=== PATIENT | female | born 2000 | race Caucasian/White ===

== ENCOUNTER 2021-09-05 15:07 | Emergency (ER) | payer OTHER ==
[2021-09-05 15:12] VITALS: BP 140/90
[2021-09-05 15:25] LABS: RAPID STREP SCREEN Negative (Negative)
[2021-09-05] MEDS ORDERED: CHERRY SYRUP 10 ML UDC PO ONE (15:35)
[2021-09-05] MEDS ORDERED: DEXAMETHASONE 10 MG/ML VIAL PO STA (15:35)
--- NOTE | 2021-09-05 15:37 | ED Physician Documentation ---
History of Present Illness - Stated complaint Stated Complaint: SORE THROAT - Chief complaint Chief Complaint: Heent - History obtained from History obtained from: Patient - History of Present Illness Timing: How many days ago (3) Pain level max: 4 Pain level now: 3 - Additonal information Additional information: Patient is a 21-year-old female with a sore throat for the past 3 days. Nephew has been sick with similar. She states he was told it was a virus. She is come to be checked for potential strep pharyngitis. No fevers. No chills. No cough. Mild congestion. Worse with swallowing, nothing makes it better. Denies any possibility of . Review of Systems Constitutional: denies: Fever, Chills GI: denies: Abdominal Pain, Vomiting, Diarrhea : denies: Dysuria, Now EGA Skin: denies: Rash Musculoskeletal: denies: Neck pain, Back pain Neurologic: denies: Headache PD PAST MEDICAL HISTORY - Past Medical History Past Medical History: No - Past Surgical History Past Surgical History: No - Allergies Allergies/Adverse Reactions: Allergies Allergy/AdvReac Type Severity Reaction Status Date / Time No Known Drug Allergies Allergy Verified 09/05/21 15:10 - Living Situation Living Situation: reports: With family Living Arrangement: reports: At home - Social History Does the pt smoke?: No Does the pt drink ETOH?: No Does the pt have substance abuse?: No PD ED PE NORMAL - Vitals Vital signs reviewed: Yes - General General: Alert and oriented X 3, No acute distress, Well developed/nourished - HEENT HEENT: PERRL, Moist mucous membranes, Other (Mild posterior oropharyngeal erythema without tonsillar exudates. Uvula midline. Normal phonation. No trismus.) - Neck Neck: Supple, no meningeal sign, No adenopathy - Cardiac Cardiac: RRR, Strong equal pulses - Respiratory Respiratory: No respiratory distress, Clear bilaterally - Abdomen Abdomen: Soft, Non tender, Non distended - Derm Derm: Warm and dry - Extremities Extremities: No edema - Neuro Neuro: Alert and oriented X 3 - Psych Psych: Normal mood, Normal affect Results - Vitals Vitals: Vital Signs - 24 hr 09/05/21 15:10 Temperature 36.5 C Heart Rate 90 Respiratory 16 Rate Blood Pressure 140/90 H O2 Saturation 99 Oxygen O2 Source Room air - Labs Labs: Laboratory Tests 09/05/21 15:14 Group A Strep Rapid Negative PD MEDICAL DECISION MAKING - ED course Complexity details: reviewed results, re-evaluated patient, considered diff erential, d/w patient ED course: Patient with what appears to be a viral pharyngitis. Negative rapid strep. Given dexamethasone here. We will continue supportive care. She can utilize Motrin and Tylenol as needed at home. Patient counseled regarding signs and symptoms for which I believe and urgent re-evaluation would be necessary. Patient with good understanding of and agreement to plan and is comfortable going home at this time This document was made in part using voice recognition software. While efforts are made to proofread this document, sound alike and grammatical errors may occur. Departure - Departure Disposition: 01 Home, Self Care Clinical Impression: Viral pharyngitis Condition: Good Instructions: ED Pharyngitis Viral Follow-Up: your,doctor as needed [Other] Comments: Please follow-up with your doctor as needed for further care. Return if you worsen. Your rapid strep is negative today. A throat culture was sent, this will take 1 to 2 days to return. If this is positive for bacterial infection, will call antibiotics and for you to a local pharmacy. You were given a dose of dexamethasone today, this should help with the swelling.
== END 2021-09-05 15:45 | disposition home or self-care (01) ==
LOC: ED 15:07
DX: J02.8 Acute pharyngitis due to other specified organisms (principal)
CPT/HCPCS: 87070; 87430; 99282; 99283; A9270

== ENCOUNTER 2021-10-28 08:00 | Outpatient (CLI) | payer OTHER ==
--- NOTE | 2021-10-28 17:56 | XRAY Report ---
PROCEDURE: Hand 3 View RT INDICATIONS: RIGHT HAND INJURY TECHNIQUE: 3 views of the hand(s) acquired. COMPARISON: None FINDINGS: Bones: No fractures or dislocations. No suspicious bony lesions. Soft tissues: No suspicious soft tissue calcifications. IMPRESSION: No right hand fracture or dislocation. No finding to explain patient's symptoms. Reviewed by: Raul Muller MD on 10/28/2021 5:54 PM PST Approved by: Raul Muller MD on 10/28/2021 5:54 PM PST Station ID: [id number]
== END 2021-10-28 23:59 ==
LOC: DI.N 08:00
PROVIDERS: ATTEND Nurse Practitioner
DX: S69.91XA Unspecified injury of right wrist, hand and finger(s), initial encounter (principal)